=== PATIENT | male | born 1965 | race Caucasian/White ===

== ENCOUNTER 2016-12-25 15:12 | Emergency (ER) | payer OTHER ==
[~2016-12-25] VITALS: Ht 170.2 cm; Wt 77.0 kg
[2016-12-25] MEDS ORDERED: ACETAMINOPHEN WITH CODEINE 300/30MG TABLET PO ONE (16:45)
[2016-12-25] MEDS ORDERED: FENTANYL CITRATE/PF 50MCG/ML 2ML VIAL IV ONE (18:30)
[2016-12-25] MEDS ORDERED: KETOROLAC 30MG/ML VIAL IV ONE (19:00)
[2016-12-25] MEDS ORDERED: IBUPROFEN 600MG TABLET PO PRN (23:00)
[2016-12-26] MEDS ORDERED: HYDROCODONE/APAP 7.5/325MG 1 TAB TABLET PO ONE (01:00)
[2016-12-26 03:25] VITALS: BP 121/77
== END 2016-12-26 04:13 | disposition short-term general hospital (02) ==
LOC: ER 15:47
DX: S93.05XA Dislocation of left ankle joint, initial encounter (principal); S20.212A Contusion of left front wall of thorax, initial encounter; X58.XXXA Exposure to other specified factors, initial encounter; Y93.89 Activity, other specified; Y92.89 Other specified places as the place of occurrence of the external cause; Y99.8 Other external cause status
CPT/HCPCS: 27840; 71101; 73080; 73590; 73600; 73610; 96374; 99285; J1885; J3010; Z7610; 96375